=== PATIENT | female | born 1975 | race Caucasian/White ===

== ENCOUNTER 2018-06-28 20:59 | Observation (INO) | payer MEDICAID ==
[~2018-06-28] VITALS: Ht 167.6 cm; Wt 95.9 kg
[~2018-06-28 20:59] MED LIST: CEFD300C37 PO; CEPH-376 PO; DOCU-131 PO; HYDR25SU21 PR; IBUP-1222 PO; IRON PO; KETO10TA PO; NITR100C PO; NITR100C56 PO; ONDA4TAB12 PO; PREN1TAB56 PO
[2018-06-28 21:15] VITALS: BP 132/67
[2018-06-28 21:45] LABS: BASOPHILS # (AUTO) 0.03 x10^3/uL (0-0.1); BASOPHILS % (AUTO) 0 % (0-1); EOSINOPHILS # (AUTO) 0.05 x10^3/uL (0-0.4); EOSINOPHILS % (AUTO) 0 % (1-7); LYMPHOCYTES # (AUTO) 1.02 x10^3/uL (1-3.4); LYMPHOCYTES % (AUTO) 7 % (22-44); MD NO; MEAN CORPUSCULAR HEMOGLOBIN 25.9 pg (27.0-34.8); MEAN CORPUSCULAR HGB CONC 33.2 g/dL (32.4-35.8); MEAN CORPUSCULAR VOLUME 78.2 fL (80-100); MEAN PLATELET VOLUME 6.7 fL (7.4-10.4); MONOCYTES # (AUTO) 0.79 x10^3/uL (0.2-0.8); MONOCYTES % (AUTO) 5 % (2-9); NEUTROPHILS # (AUTO) 12.99 x10^3/uL (1.8-6.8); NEUTROPHILS % (AUTO) 87 % (42-75); PLATELET COUNT 401 x10^3/uL (130-400); RED BLOOD COUNT 3.42 x10^6/uL (3.82-5.3); RED CELL DISTRIBUTION WIDTH 17.5 % (9.6-15.2)
[2018-06-28 21:58] LABS: ALBUMIN 2.5 g/dL (3.4-5.0); ANION GAP 9 mmol/L (5-15); CALCIUM 8.2 mg/dL (8.5-10.1); CHLORIDE 107 mmol/L (98-107)
[2018-06-28 22:01] LABS: ALANINE AMINOTRANSFERASE 12 U/L (12-78); ALKALINE PHOSPHATASE 119 U/L (45-117); BILIRUBIN,TOTAL 0.4 mg/dL (0.2-1.0); CREATININE 0.64 mg/dL (0.55-1.02); TOTAL PROTEIN 6.6 g/dL (6.4-8.2)
[2018-06-29] MEDS ORDERED: ACETAMINOPHEN 325 MG TABLET PO PRN (00:30)
[2018-06-29] MEDS ORDERED: ACETAMINOPHEN 325 MG TABLET ONE (00:32)
[2018-06-29] MEDS: LACTATED RINGERS 1,000 ML IV SCH ×2 (00:40→08:22)
[2018-06-29 01:01] LABS: MICROSCOPIC INDICATED
[2018-06-29 01:08] LABS: AMPHETAMINE SCREEN, URINE Negative (Negative); BARBITURATE SCREEN, URINE Negative (Negative); BENZODIAZEPINE SCREEN, URINE Negative (Negative); CANNABINOID SCREEN, URINE Negative (Negative); COCAINE SCREEN, URINE Negative (Negative); METHADONE SCREEN, URINE Negative (Negative); OPIATE SCREEN, URINE Negative (Negative)
[2018-06-29] MEDS ORDERED: CEFTRIAXONE 1,000 MG in SODIUM CHLORIDE 0.9% 50 ML IV ONE (04:30)
[2018-06-29 12:10] LABS: ALANINE AMINOTRANSFERASE 10 U/L (12-78); ALBUMIN 2.3 g/dL (3.4-5.0); ANION GAP 9 mmol/L (5-15); CHLORIDE 109 mmol/L (98-107); CREATININE 0.49 mg/dL (0.55-1.02)
[2018-06-29 12:12] LABS: ALKALINE PHOSPHATASE 116 U/L (45-117); BILIRUBIN,TOTAL 0.2 mg/dL (0.2-1.0); TOTAL PROTEIN 6.1 g/dL (6.4-8.2)
[2018-06-29 13:04] LABS: HEMOGLOBIN A1C 5.8 % (4.2-6.3)
== END 2018-06-29 14:12 | disposition home or self-care (01) ==
LOC: LDOP 20:59 → LDIP 06-29 00:56
PROVIDERS: ADMIT Obstetrics & Gynecology; ATTEND Obstetrics & Gynecology
DX: O26.893 Other specified pregnancy related conditions, third trimester (principal); R10.9 Unspecified abdominal pain; O09.523 Supervision of elderly multigravida, third trimester; O30.003 Twin pregnancy, unspecified number of placenta and unspecified number of amniotic sacs, third trimester; O24.419 Gestational diabetes mellitus in pregnancy, unspecified control; Z3A.38 38 weeks gestation of pregnancy
CPT/HCPCS: 36415; 59025; 76770; 76805; 80053; 80307; 81001; 82962; 83036; 85025; 86592; 86762; 86850; 86900; 87077; 87081; 87086; 87147; 87186; 87340; 87806; 96361; 96365; G0378; J0696; J7120; 96360; 99201; G0463; G0475

== ENCOUNTER 2018-07-06 17:27 | Outpatient (CLI) | payer MEDICAID ==
[~2018-07-06] VITALS: Ht 167.6 cm; Wt 119.5 kg
[2018-07-06 18:00] VITALS: BP 130/66
[2018-07-06 18:21] LABS: MICROSCOPIC INDICATED
[2018-07-06 18:28] LABS: AMPHETAMINE SCREEN, URINE Negative (Negative); BARBITURATE SCREEN, URINE Negative (Negative); BENZODIAZEPINE SCREEN, URINE Negative (Negative); CANNABINOID SCREEN, URINE Negative (Negative); METHADONE SCREEN, URINE Negative (Negative); OPIATE SCREEN, URINE Negative (Negative)
[2018-07-06 19:00] LABS: COCAINE SCREEN, URINE Negative (Negative)
[2018-07-06] MEDS ORDERED: NITR100C56 PO (19:48)
== END 2018-07-06 20:05 | disposition home or self-care (01) ==
LOC: LDOP 17:27
PROVIDERS: ATTEND Obstetrics & Gynecology Female Pelvic Medicine and Reconstructive Surgery
DX: Z34.83 Encounter for supervision of other normal pregnancy, third trimester (principal); Z3A.40 40 weeks gestation of pregnancy
CPT/HCPCS: 59025; 76819; 80307; 81001; 87086; 99211; G0463

== ENCOUNTER 2018-07-09 20:57 | Outpatient (CLI) | payer MEDICAID ==
[~2018-07-09] VITALS: Ht 167.6 cm; Wt 93.0 kg
[2018-07-09 21:04] VITALS: BP 127/66
== END 2018-07-09 21:35 | disposition home or self-care (01) ==
LOC: LDOP 20:57
PROVIDERS: ATTEND Obstetrics & Gynecology Gynecology
DX: Z34.80 Encounter for supervision of other normal pregnancy, unspecified trimester (principal); Z3A.00 Weeks of gestation of pregnancy not specified
CPT/HCPCS: 59025; 99211; G0463

== ENCOUNTER 2018-07-15 03:34 | Inpatient (IN) | payer MEDICAID ==
[~2018-07-15] VITALS: Ht 167.6 cm; Wt 88.0 kg
[2018-07-15] MEDS ORDERED: NEWBORN KIT ONE (03:41)
[2018-07-15] MEDS ORDERED: OXYTOCIN 30U/ 0.9% NaCL 500ML 500 ML ONE ×2 (03:42→05:47)
[2018-07-15] MEDS ORDERED: LIDOCAINE/PF 1%, 30ML ONE (03:42)
[2018-07-15] MEDS ORDERED: MISOPROSTOL 200 MCG TABLET ONE (03:42)
[2018-07-15] MEDS ORDERED: OXYTOCIN 30U/ 0.9% NaCL 500ML 500 ML IV ONE (03:49)
[2018-07-15] MEDS ORDERED: LACTATED RINGERS 1,000 ML IV SCH (03:49)
[2018-07-15] MEDS ORDERED: D5%-LACTATED RINGERS 1,000 ML IV SCH (03:49)
[2018-07-15] MEDS ORDERED: PENICILLIN GK 2,500,000 UNITS in DEXTROSE 5% 100 ML IVPB SCH (04:00)
[2018-07-15] MEDS ORDERED: FENTANYL PF 100 MCG/2ML IVPush PRN (04:00)
[2018-07-15] MEDS ORDERED: PENICILLIN GK 5,000,000 UNITS in SODIUM CHLORIDE 0.9% 100 ML IVPB ONE (04:00)
[2018-07-15] MEDS ORDERED: FENTANYL PF 100 MCG/2ML IV PRN (04:00)
[2018-07-15] MEDS ORDERED: TERBUTALINE 1 MG/ML, 1ML IVPush PRN ×2 (04:00)
[2018-07-15] MEDS ORDERED: PLEASE ENTER HEIGHT AND WEIGHT MC SCH (04:30)
[2018-07-15] MEDS: OXYTOCIN 30U/ 0.9% NaCL 500ML 500 ML IV SCH ×2 (04:54→14:54)
[2018-07-15] MEDS ORDERED: ONDANSETRON 2MG/ML, 2ML IV PRN (05:00)
[2018-07-15] MEDS ORDERED: CARBOPROST TROMETHAMINE 250 MCG/ML, 1ML IM PRN (05:00)
[2018-07-15] MEDS ORDERED: METHYLERGONOVINE 0.2 MG/ML IM PRN (05:00)
[2018-07-15] MEDS ORDERED: MISOPROSTOL 200 MCG TABLET PR PRN (05:00)
[2018-07-15] MEDS ORDERED: OXYcodone/APAP 5/325MG TABLET PO PRN ×2 (05:00)
[2018-07-15 05:29] LABS: BASOPHILS # (AUTO) 0.07 x10^3/uL (0-0.1); BASOPHILS % (AUTO) 1 % (0-1); EOSINOPHILS # (AUTO) 0.07 x10^3/uL (0-0.4); EOSINOPHILS % (AUTO) 1 % (1-7); LYMPHOCYTES # (AUTO) 1.44 x10^3/uL (1-3.4); LYMPHOCYTES % (AUTO) 10 % (22-44); MD NO; MEAN CORPUSCULAR HEMOGLOBIN 25.6 pg (27.0-34.8); MEAN CORPUSCULAR HGB CONC 33.1 g/dL (32.4-35.8); MEAN CORPUSCULAR VOLUME 77.3 fL (80-100); MEAN PLATELET VOLUME 7.1 fL (7.4-10.4); MONOCYTES # (AUTO) 0.57 x10^3/uL (0.2-0.8); MONOCYTES % (AUTO) 4 % (2-9); NEUTROPHILS # (AUTO) 12.17 x10^3/uL (1.8-6.8); NEUTROPHILS % (AUTO) 85 % (42-75); PLATELET COUNT 404 x10^3/uL (130-400); RED BLOOD COUNT 3.68 x10^6/uL (3.82-5.3)
[2018-07-15 05:33] VITALS: BP 140/68
[2018-07-15] MEDS ORDERED: IBUPROFEN 600 MG TABLET ONE (06:12)
[2018-07-15 07:45] VITALS: BP 110/70
[2018-07-15] MEDS: DOCUSATE 100 MG CAPSULE PO PRN (09:23)
[2018-07-15] MEDS: PRENATAL VIT/IRON/FA 1 EACH TABLET PO SCH (09:23)
[2018-07-15 12:00] VITALS: BP 123/73
[2018-07-15 13:02] LABS: BASOPHILS # (AUTO) 0.02 x10^3/uL (0-0.1); BASOPHILS % (AUTO) 0 % (0-1); EOSINOPHILS # (AUTO) 0.06 x10^3/uL (0-0.4); EOSINOPHILS % (AUTO) 0 % (1-7); LYMPHOCYTES # (AUTO) 1.39 x10^3/uL (1-3.4); LYMPHOCYTES % (AUTO) 9 % (22-44); MD NO; MEAN CORPUSCULAR HEMOGLOBIN 25.5 pg (27.0-34.8); MEAN CORPUSCULAR HGB CONC 33.5 g/dL (32.4-35.8); MEAN CORPUSCULAR VOLUME 76.1 fL (80-100); MEAN PLATELET VOLUME 6.9 fL (7.4-10.4); MONOCYTES # (AUTO) 0.64 x10^3/uL (0.2-0.8); MONOCYTES % (AUTO) 4 % (2-9); NEUTROPHILS # (AUTO) 13.24 x10^3/uL (1.8-6.8); NEUTROPHILS % (AUTO) 86 % (42-75); PLATELET COUNT 368 x10^3/uL (130-400); RED BLOOD COUNT 3.38 x10^6/uL (3.82-5.3)
[2018-07-15 16:40] VITALS: BP 112/78
[2018-07-15] MEDS: IBUPROFEN 800 MG TABLET PO PRN (16:59)
[2018-07-15] MEDS: PLEASE ENTER WEIGHT MC SCH (19:30)
[2018-07-15 20:45] VITALS: BP 137/66
[2018-07-16 00:45] VITALS: BP 105/63
[2018-07-16] MEDS: OXYTOCIN 30U/ 0.9% NaCL 500ML 500 ML IV SCH ×3 (00:49→20:54)
[2018-07-16] MEDS: DOCUSATE 100 MG CAPSULE PO PRN ×3 (00:50→20:51)
[2018-07-16] MEDS: IBUPROFEN 800 MG TABLET PO PRN ×3 (00:50→20:52)
[2018-07-16] MEDS: PLEASE ENTER WEIGHT MC SCH (03:30)
[2018-07-16 03:45] VITALS: BP 124/73
[2018-07-16 07:32] VITALS: BP 104/69
[2018-07-16] MEDS: FERROUS GLUCONATE 324 MG TABLET PO SCH ×2 (09:47→20:51)
[2018-07-16] MEDS: PRENATAL VIT/IRON/FA 1 EACH TABLET PO SCH (09:47)
[2018-07-16 19:55] VITALS: BP 109/68
[2018-07-17] MEDS: IBUPROFEN 800 MG TABLET PO PRN (06:21)
[2018-07-17] MEDS: OXYTOCIN 30U/ 0.9% NaCL 500ML 500 ML IV SCH (06:22)
[2018-07-17 08:42] VITALS: BP 109/69
[2018-07-17] MEDS: DOCUSATE 100 MG CAPSULE PO PRN (08:52)
[2018-07-17] MEDS: PRENATAL VIT/IRON/FA 1 EACH TABLET PO SCH (08:52)
[2018-07-17] MEDS: FERROUS GLUCONATE 324 MG TABLET PO SCH (08:53)
[2018-07-17] MEDS ORDERED: IBUP-1222 PO (12:27)
== END 2018-07-17 15:10 | disposition home or self-care (01) | DRG 775 ==
LOC: LDOP 03:34 → LDIP 03:46 → 2NW 07:35
PROVIDERS: ADMIT Obstetrics & Gynecology; ATTEND Obstetrics & Gynecology
PROC: 0KQM0ZZ Repair Perineum Muscle, Open Approach (ICD-10-PCS; principal; 2018-07-15)
PROC: 10E0XZZ Delivery of Products of Conception, External Approach (ICD-10-PCS; 2018-07-15)
DX: O40.3XX0 Polyhydramnios, third trimester, not applicable or unspecified (principal); O77.0 Labor and delivery complicated by meconium in amniotic fluid; O70.1 Second degree perineal laceration during delivery; O99.824 Streptococcus B carrier state complicating childbirth; Z37.0 Single live birth; Z3A.41 41 weeks gestation of pregnancy; Z87.442 Personal history of urinary calculi
CPT/HCPCS: 36415; 85025; 86850; 86900; J2540; J2590; J7120